=== PATIENT | male | born 1980 | race Hispanic/Latino ===

== ENCOUNTER 2021-05-01 14:40 | Emergency (ER) | payer SELFPAY ==
[2021-05-01] MEDS ORDERED: Lidocaine 1% (PF) 30 ML VIAL ONE (15:05)
[2021-05-01] MEDS ORDERED: Bacitracin 1 PK ONE (15:58)
== END 2021-05-01 16:30 | disposition home or self-care (01) ==
LOC: ERS 14:40
DX: S01.511A Laceration without foreign body of lip, initial encounter (principal); W22.01XA Walked into wall, initial encounter
CPT/HCPCS: 12011; 12052; J2001